=== PATIENT | female | born 1970 | race Caucasian/White ===

== ENCOUNTER 2021-01-22 05:07 | Inpatient (IN) | payer MEDICAID ==
[~2021-01-22] VITALS: Ht 152.4 cm; Wt 76.7 kg
[2021-01-22 06:21] LABS: BASOPHILS % 0.7 % (0.0-2.0); EOSINOPHILS % 1.6 % (0.0-5.0); HEMATOCRIT. 36.9 % (36.0-48.0); LYMPHOCYTES % 30.9 % (20.0-50.0); MEAN CORPUSCULAR HEMOGLOBIN 31.7 pg (28.0-32.0); MEAN PLATELET VOLUME 10.4 fl (7.4-10.4); MONOCYTES % 7.7 % (2.0-8.0); NEUTROPHILS % 59.1 % (40.0-76.0); PLATELET 117 x1000/uL (130-400); RED CELL DISTRIBUTION WIDTH 15.1 % (11.6-14.6)
[2021-01-22 06:32] LABS: CHLORIDE 100 mEq/L (98-107)
[2021-01-22 06:35] LABS: ETHANOL BLOOD < 10 mg/dL
[2021-01-22 06:51] LABS: CLARITY URINE CLOUDY (CLEAR); COLOR URINE YELLOW (YELLOW); KETONES URINE TRACE (NEGATIVE); LEUKOCYTE ESTERASE URINE TRACE (NEGATIVE); NITRITE URINE NEGATIVE (NEGATIVE); OCCULT BLOOD URINE NEGATIVE (NEGATIVE); PH URINE 6.5 (4.5-8.0); PROTEIN URINE TRACE (NEGATIVE); SPECIFIC GRAVITY URINE 1.029 (1.005-1.030)
[2021-01-22 07:13] LABS: *AMPHETAMINES SCREEN URINE NEGATIVE (NEGATIVE); *BARBITURATES SCREEN URINE NEGATIVE (NEGATIVE); *BENZODIAZEPINES SCREEN URINE NEGATIVE (NEGATIVE); *COCAINE SCREEN URINE NEGATIVE (NEGATIVE); OPIATES URINE SCREEN PRESUMTIVE POSITIVE (NEGATIVE)
[2021-01-22 07:14] LABS: CANNABINOID URINE SCREEN PRESUMTIVE POSITIVE (NEGATIVE); METHADONE URINE SCREEN NEGATIVE (NEGATIVE); PHENCYCLIDINE URINE SCREEN NEGATIVE (NEGATIVE)
[2021-01-22] MEDS ORDERED: POTASSIUM CHLORIDE 20MEQ TABLET SR PO ONE (09:30)
[2021-01-22] MEDS ORDERED: FUROSEMIDE 40MG/4ML VIAL IVP SCH ×2 (13:45→15:45)
[2021-01-22] MEDS ORDERED: ONDANSETRON HCL 4MG/2ML INJ IV PRN (13:45)
[2021-01-22] MEDS ORDERED: ACETAMINOPHEN 325MG TABLET PO PRN (13:45)
[2021-01-22] MEDS: POTASSIUM CHLORIDE 20MEQ TABLET SR PO SCH (13:52)
[2021-01-22] MEDS ORDERED: MAGNESIUM OXIDE 400MG TABLET PO NR (14:00)
[2021-01-22 15:15] VITALS: BP 101/72
[2021-01-22] MEDS ORDERED: POTASSIUM CHLORIDE 20MEQ TABLET SR PO NR (15:45)
[2021-01-22 16:00] VITALS: BP 101/72
[2021-01-22] MEDS ORDERED: SILD20TA MT (16:44)
[2021-01-22] MEDS ORDERED: SPIR50TA5 PO (16:44)
[2021-01-22] MEDS ORDERED: POTA20TA82 MT (16:44)
[2021-01-22] MEDS ORDERED: FLUO10CA25 MT (16:44)
[2021-01-22] MEDS ORDERED: CARV3.1242 MT (16:44)
[2021-01-22] MEDS ORDERED: FURO-151 PO (16:44)
[2021-01-22] MEDS ORDERED: METO2.5T2 PO (16:44)
[2021-01-22] MEDS: FUROSEMIDE 40MG/4ML VIAL IVP SCH (17:32)
[2021-01-22 20:00] VITALS: BP 124/78
[2021-01-23 00:56] VITALS: BP_SYST 102; BP_SYST 110; BP_SYST 118; BP_DIAS 72; BP_DIAS 74; BP_DIAS 80
[2021-01-23 04:00] VITALS: BP 105/68
[2021-01-23 06:50] LABS: BASOPHILS % 0.4 % (0.0-2.0); EOSINOPHILS % 1.8 % (0.0-5.0); HEMATOCRIT. 42.1 % (36.0-48.0); HEMOGLOBIN. 14.7 g/dL (12.0-16.0); LYMPHOCYTES % 34.2 % (20.0-50.0); MEAN CORPUSCULAR HEMOGLOBIN 31.7 pg (28.0-32.0); MEAN CORPUSCULAR VOLUME 90.7 fL (81.0-99.0); MEAN PLATELET VOLUME 10.2 fl (7.4-10.4); MONOCYTES % 8.7 % (2.0-8.0); NEUTROPHILS % 54.9 % (40.0-76.0); PLATELET 115 x1000/uL (130-400); RED BLOOD CELL COUNT 4.64 mill/uL (4.2-5.4); RED CELL DISTRIBUTION WIDTH 15.4 % (11.6-14.6)
[2021-01-23 06:56] LABS: CHLORIDE 94 mEq/L (98-107)
[2021-01-23 08:00] VITALS: BP 111/82
[2021-01-23] MEDS: FUROSEMIDE 40MG/4ML VIAL IVP SCH (08:11)
[2021-01-23] MEDS: POTASSIUM CHLORIDE 20MEQ TABLET SR PO SCH (08:12)
[2021-01-23] MEDS ORDERED: FLUDROCORTISONE ACETATE 0.1MG TABLET PO SCH (09:00)
[2021-01-23] MEDS ORDERED: ASPIRIN 81MG TABLET PO SCH (09:00)
[2021-01-23 12:00] VITALS: BP 117/78
[2021-01-23] MEDS ORDERED: POTASSIUM CHLORIDE 20MEQ TABLET SR PO SCH ×3 (12:00→18:00)
[2021-01-23] MEDS ORDERED: FLOR PO (12:28)
[2021-01-23] MEDS ORDERED: FURO-151 MT (12:28)
[2021-01-23] MEDS ORDERED: POTA20TA82 PO (12:28)
[2021-01-23 13:41] VITALS: BP 115/75
== END 2021-01-23 14:40 | disposition home or self-care (01) | DRG 194 ==
LOC: ER 05:07 → MICUSO 10:32 → 7WST 14:31 → 7EST 23:58
PROVIDERS: ADMIT Internal Medicine; ATTEND Internal Medicine
DX: I11.0 Hypertensive heart disease with heart failure (principal); N17.9 Acute kidney failure, unspecified; D69.6 Thrombocytopenia, unspecified; I27.21 Secondary pulmonary arterial hypertension; G90.8 Other disorders of autonomic nervous system; I49.9 Cardiac arrhythmia, unspecified; I50.43 Acute on chronic combined systolic (congestive) and diastolic (congestive) heart failure; E87.6 Hypokalemia; E83.42 Hypomagnesemia; I50.813 Acute on chronic right heart failure; R00.2 Palpitations; F12.90 Cannabis use, unspecified, uncomplicated; E66.9 Obesity, unspecified; Z20.822 Contact with and (suspected) exposure to COVID-19; I45.10 Unspecified right bundle-branch block; I25.10 Atherosclerotic heart disease of native coronary artery without angina pectoris; I25.2 Old myocardial infarction; Z98.891 History of uterine scar from previous surgery; Z68.33 Body mass index [BMI] 33.0-33.9, adult; Z71.3 Dietary counseling and surveillance; Z91.14 Patient's other noncompliance with medication regimen
CPT/HCPCS: 36415; 71045; 80048; 80053; 80061; 80305; 80320; 81003; 83735; 83880; 84443; 84484; 85025; 85379; 93005; 93306; 93880; 99285; J1940; U0003; U0005; G0480